=== PATIENT | female | born 1985 | race Caucasian/White ===

== ENCOUNTER 2018-06-21 15:09 | Emergency (ER) | payer MEDICAID ==
[~2018-06-21] VITALS: Ht 170.2 cm; Wt 56.8 kg
[2018-06-21 15:17] VITALS: Ht 170.2 cm; Wt 56.8 kg
[2018-06-21] MEDS ORDERED: CYCLOBENZAPRINE10 MG PO (15:19)
[2018-06-21 15:38] LABS: BASOPHILS 0.4 % (0-2); EOSINOPHILS 2.6 % (0-7); HEMATOCRIT 40.4 % (36.0-48.0); HEMOGLOBIN 13.7 g/dL (12-16); LYMPHOCYTES 34.1 % (15-50); MCH 27.7 pg (26.0-34.0); MCHC 33.9 g/dL (31.0-37.0); MCV 81.6 fL (80.0-100.0); MEAN PLATELET VOLUME 10.2 fL (7.4-10.4); MONOCYTES 6.6 % (2-11); NEUTROPHILS 56.3 % (40-80); PLATELET COUNT 200 10x3/uL (130-400); RBC 4.95 10x6/uL (4.00-5.40); RDW 12.7 % (11.5-14.5); WBC 5.5 10x3/uL (4.8-10.8)
[2018-06-21 15:41] LABS: APPEARANCE CLEAR (CLEAR); BILIRUBIN NEGATIVE (NEGATIVE); COLOR YELLOW (YELLOW); GLUCOSE NEGATIVE (NEGATIVE); KETONE NEGATIVE (NEGATIVE); NITRITE NEGATIVE (NEGATIVE); PROTEIN TRACE mg/dL (NEGATIVE); UROBILINOGEN NORMAL (NORMAL)
[2018-06-21 15:56] LABS: ALBUMIN 4.1 g/dL (3.4-5.0); ALKALINE PHOSPHATASE 72 U/L (46-116); ALT (SGPT) 10 U/L (10-68); BILIRUBIN - TOTAL 0.61 mg/dL (0.2-1.3); CALC OSMOLALITY 271 mosm/kg (275-300); CALCIUM 8.8 mg/dL (8.5-10.1); CARBON DIOXIDE 28.9 mmol/L (21.0-32.0); CHLORIDE - SERUM 101 mmol/L (98-107); CREATININE - SERUM 0.6 mg/dL (0.6-1.3); GLUCOSE 94 mg/dL (74-106); POTASSIUM - SERUM 3.6 mmol/L (3.5-5.1); PROTEIN - SERUM 8.1 g/dL (6.4-8.2); SODIUM 137 mmol/L (136-145); UREA NITROGEN 7 mg/dL (7-18); eGFR NON AFRICAN AMERICAN > 90 mL/min (90-120)
[2018-06-21 17:27] VITALS: BP 94/59
[2018-06-21] MEDS ORDERED: VOLTAREN75 MG PO (17:31)
[2018-06-21] MEDS ORDERED: BACLOFEN20 M1 PO (17:31)
== END 2018-06-21 17:44 | disposition home or self-care (01) ==
LOC: D.ER 15:09
PROVIDERS: Family Medicine
DX: R07.9 Chest pain, unspecified (principal); R09.1 Pleurisy

== ENCOUNTER 2019-08-15 18:26 | Emergency (ER) | payer SELFPAY ==
[~2019-08-15] VITALS: Ht 170.2 cm; Wt 54.5 kg
[~2019-08-15 18:26] MED LIST: BACLOFEN20 M1 PO; CYCLOBENZAPRINE10 MG PO; VOLTAREN75 MG PO
[2019-08-15 18:37] VITALS: Ht 170.2 cm; Wt 54.5 kg
[2019-08-15] MEDS ORDERED: HYDROCODON-ACE1 EAC7 (18:38)
[2019-08-15] MEDS ORDERED: TRAZODONE HCL150 MG PO (18:38)
[2019-08-15] MEDS ORDERED: VOLTAREN75 MG PO (19:18)
[2019-08-15] MEDS ORDERED: MUPIROCIN22 GM TOPICAL (19:18)
[2019-08-15 19:41] VITALS: BP 118/76
== END 2019-08-15 19:41 | disposition home or self-care (01) ==
LOC: D.ER 18:26
DX: T23.102A Burn of first degree of left hand, unspecified site, initial encounter (principal); X12.XXXA Contact with other hot fluids, initial encounter; Y93.9 Activity, unspecified; Y92.9 Unspecified place or not applicable

== ENCOUNTER 2019-11-04 08:13 | Emergency (ER) | payer MEDICAID ==
[~2019-11-04] VITALS: Ht 170.2 cm; Wt 54.5 kg
[~2019-11-04 08:13] MED LIST changes: +HYDROCODON-ACE1 EAC7; +MUPIROCIN22 GM TOPICAL; +TRAZODONE HCL150 MG PO
[2019-11-04 08:20] VITALS: Ht 170.2 cm; Wt 54.5 kg
[2019-11-04 08:49] LABS: CALC OSMOLALITY 273 mosm/kg (275-300); CALCIUM 8.6 mg/dL (8.5-10.1); CARBON DIOXIDE 24.1 mmol/L (21.0-32.0); CHLORIDE - SERUM 103 mmol/L (98-107); CREATININE - SERUM 0.7 mg/dL (0.6-1.3); GLUCOSE 89 mg/dL (74-106); POTASSIUM - SERUM 3.8 mmol/L (3.5-5.1); SODIUM 138 mmol/L (136-145); UREA NITROGEN 11 mg/dL (7-18); eGFR NON AFRICAN AMERICAN > 90 mL/min (90-120)
[2019-11-04 08:58] LABS: ALBUMIN 4.1 g/dL (3.4-5.0); ALKALINE PHOSPHATASE 56 U/L (30-120); ALT (SGPT) 12 U/L (10-68); AMYLASE - SERUM 51 U/L (25-115); LIPASE 84 U/L (73-393); PROTEIN - SERUM 7.4 g/dL (6.4-8.2)
[2019-11-04 08:59] LABS: BASOPHILS 0.4 % (0-2); EOSINOPHILS 2.5 % (0-7); HEMATOCRIT 38.7 % (36.0-48.0); HEMOGLOBIN 13.1 g/dL (12-16); IMMATURE GRANULOCYTES 0.2 % (0-5); LYMPHOCYTES 24.1 % (15-50); MCH 27.9 pg (26.0-34.0); MCHC 33.9 g/dL (31.0-37.0); MCV 82.5 fL (80.0-100.0); MONOCYTES 7.6 % (2-11); NEUTROPHILS 65.2 % (40-80); PLATELET COUNT 196 10x3/uL (130-400); RBC 4.69 10x6/uL (4.00-5.40); RDW 12.4 % (11.5-14.5); WBC 5.5 10x3/uL (4.8-10.8)
[2019-11-04 09:00] LABS: TROPONIN-I < 0.017 ng/mL (0.000-0.060)
[2019-11-04 09:07] LABS: BILIRUBIN NEGATIVE (NEGATIVE); KETONE NEGATIVE (NEGATIVE); NITRITE NEGATIVE (NEGATIVE); UROBILINOGEN NORMAL (NORMAL)
[2019-11-04 11:12] VITALS: BP 94/60
== END 2019-11-04 11:12 | disposition home or self-care (01) ==
LOC: D.ER 08:13
PROVIDERS: Family Medicine
DX: R10.2 Pelvic and perineal pain (principal)